=== PATIENT | female | born 1975 | race Caucasian/White ===

== ENCOUNTER 2016-11-23 15:59 | Emergency (ER) | payer MEDICARE, MEDICAID ==
[~2016-11-23] VITALS: Ht 175.3 cm; Wt 81.8 kg
[~2016-11-23 15:59] MED LIST: ALBUTEROL0.09 MG/A1 IH; ALBUTEROL0.83 MG/ML IH; ALEVE; AMOXICILLIN 50500 MG PO; BACTRIM DS 8001 TAB PO; BCP TD; CARAFATE 1GM1 G PO; CELEBREX50 MG; CIPRO500 MG PO; FLEXERIL 1010 MG/TAB PO; LORTAB 5/500 501 TAB PO; LORTAB PO; MACROBID100 M1 PO; MULTIPLE VITAMI1 TA2 PO; MVI; NAPROXEN ER500 MG PO; NO HOME MEDICATIONS; NORCO 325 MG-51 TAB PO; NORCO 325 MG-7.1 TAB PO; PERCOCET 325 MG1 TA2 PO; PREDNISONE10 MG PO; PREDNISONE20 MG PO; PRENATAL1 TA1 PO; PREVACID 30MG30 MG PO; PREVPAC PO; PRIL40 PO; PRILOTC PO; PROAIR HFA0.09 MG/AC IH; SINGULAIR PO; ULTRAM 50MG TAB50 MG PO; VICODIN 5/5001 UDTAB PO; ZOFRAN ODT4 MG PO; ZOFRAN8 MG PO; seasonale
[2016-11-23 16:07] VITALS: TEMP 98.2
[2016-11-23 17:18] LABS: BASO # 0.1 (0.0-0.2); BASO % 0.7 % (0.0-2.0); EOS # 0.4 (0.0-0.7); EOS % 3.2 % (0-4.0); GRAN # 6.2 (1.4-6.5); GRAN % 56.5 % (42.2-75.2); HEMOGLOBIN 12.2 g/dl (12.5-16.0); LYMPH # 3.7 (1.2-3.4); LYMPH % 33.7 % (20.0-51.0); MEAN CELL VOLUME 87 fl (80.0-100.0); MEAN CORPUSCULAR HEMOGLOBIN 30 pg (27.0-31.0); MEAN CORPUSCULAR HGB CONC 35 g/dl (33.0-37.0); MEAN PLATELET VOLUME 10.1 fl (7.4-10.4); MONO # 0.6 (0.1-0.6); MONO % 5.3 % (1.7-9.3); PLATELET COUNT 294 K/mm3 (130-400); RED BLOOD COUNT 4.02 M/mm3 (4.10-5.30); REDCELL DISTRIBUTION WIDTH-CV 12.8 % (11.5-14.5); WHITE BLOOD COUNT 10.9 K/mm3 (4.8-10.8)
[2016-11-23 17:22] LABS: HEMATOCRIT 35.1 % (37.0-47.0)
[2016-11-23 17:23] LABS: PH 6 (5-8); SQUAMOUS EPITHELIAL 0-2 /hpf; URINE APPEARANCE Hazy; URINE BACTERIA Rare /hpf; URINE BILIRUBIN Negative (NEGATIVE); URINE BLOOD 1+ (NEGATIVE); URINE COLOR Yellow; URINE GLUCOSE Negative (NEGATIVE); URINE KETONE Negative (NEGATIVE); URINE UROBILINOGEN Negative (NEGATIVE)
[2016-11-23] MEDS ORDERED: CARAFATE 1GM1 G PO (17:29)
[2016-11-23] MEDS ORDERED: PRILOSEC 20MG20 MG PO (17:29)
[2016-11-23 17:38] LABS: ADJUSTED CALCIUM 9.3 mg/dL (8.4-10.2); ALBUMIN 3.9 gm/dL (3.5-5.0); BILIRUBIN,TOTAL 0.6 mg/dL (0.0-1.0); CALCIUM 9.2 mg/dL (8.4-10.2); CREATININE, serum 0.94 mg/dL (0.52-1.25); POTASSIUM 3.8 mmol/L (3.4-5.0); TOTAL PROTEIN 6.9 gm/dL (6.4-8.2)
[2016-11-23 18:22] VITALS: BP 118/80; PULSE 85
== END 2016-11-23 18:24 | disposition home or self-care (01) ==
LOC: COL.ER 15:59
PROVIDERS: Family Medicine
DX: K52.9 Noninfective gastroenteritis and colitis, unspecified (principal)
CPT/HCPCS: J2405; J7030

== ENCOUNTER 2017-02-18 13:58 | Emergency (ER) | payer MEDICARE, MEDICAID ==
[~2017-02-18] VITALS: Ht 175.3 cm; Wt 112.8 kg
[~2017-02-18 13:58] MED LIST changes: +PRILOSEC 20MG20 MG PO
[2017-02-18 14:06] VITALS: BP 122/71; TEMP 98
[2017-02-18 15:41] VITALS: PULSE 80
== END 2017-02-18 15:41 | disposition home or self-care (01) ==
LOC: COL.ER 13:58
DX: J06.9 Acute upper respiratory infection, unspecified (principal); K21.9 Gastro-esophageal reflux disease without esophagitis

== ENCOUNTER 2017-11-24 14:26 | Emergency (ER) | payer MEDICARE ==
[~2017-11-24] VITALS: Ht 175.3 cm; Wt 84.1 kg
[2017-11-24 14:28] VITALS: BP 125/59; TEMP 97.6
[2017-11-24] MEDS ORDERED: PREDNISONE20 MG PO (14:39)
[2017-11-24] MEDS ORDERED: MULTI VITAMINS1 TAB PO (14:44)
[2017-11-24 14:59] VITALS: PULSE 94
== END 2017-11-24 14:59 | disposition home or self-care (01) ==
LOC: COL.ER 14:26
DX: L50.9 Urticaria, unspecified (principal); K21.9 Gastro-esophageal reflux disease without esophagitis
CPT/HCPCS: J7512

== ENCOUNTER 2018-06-28 22:53 | Emergency (ER) | payer MEDICARE, OTHER ==
[~2018-06-28] VITALS: Ht 175.3 cm; Wt 106.4 kg
[~2018-06-28 22:53] MED LIST changes: +MULTI VITAMINS1 TAB PO
[2018-06-28 22:58] VITALS: TEMP 97.8
[2018-06-29 00:02] LABS: COLLECTION METHOD CLEAN CATCH
[2018-06-29 00:08] LABS: MUCOUS Present /lpf; PH 5 (5-8); URINE APPEARANCE Hazy; URINE BACTERIA None Seen /hpf; URINE BILIRUBIN Negative (NEGATIVE); URINE BLOOD 1+ (NEGATIVE); URINE COLOR Yellow; URINE GLUCOSE Negative (NEGATIVE); URINE KETONE Negative (NEGATIVE); URINE LEUKOCYTE ESTERASE Negative (NEGATIVE); URINE NITRATE Negative (NEGATIVE); URINE PROTEIN(semi-quant) Negative (NEGATIVE); URINE RBC 0-2 /hpf; URINE UROBILINOGEN Negative (NEGATIVE)
[2018-06-29 01:28] LABS: BASO # 0.1 (0.0-0.2); BASO % 0.6 % (0.0-2.0); EOS # 0.3 (0.0-0.7); EOS % 3.1 % (0-4.0); GRAN % 55.5 % (42.2-75.2); HEMOGLOBIN 11.2 g/dl (12.5-16.0); LYMPH # 3.1 (1.2-3.4); LYMPH % 34.3 % (20.0-51.0); MEAN CELL VOLUME 87 fl (80.0-100.0); MEAN CORPUSCULAR HEMOGLOBIN 30 pg (27.0-31.0); MEAN CORPUSCULAR HGB CONC 35 g/dl (33.0-37.0); MEAN PLATELET VOLUME 9.8 fl (7.4-10.4); MONO # 0.5 (0.1-0.6); MONO % 6.1 % (1.7-9.3); PLATELET COUNT 226 K/mm3 (130-400); RED BLOOD COUNT 3.69 M/mm3 (4.10-5.30); REDCELL DISTRIBUTION WIDTH-CV 12.7 % (11.5-14.5)
[2018-06-29 01:29] LABS: HEMATOCRIT 32.2 % (37.0-47.0)
[2018-06-29 01:45] LABS: ALBUMIN 3.3 gm/dL (3.5-5.0); BILIRUBIN,TOTAL 0.3 mg/dL (0.0-1.0); CALCIUM 8.8 mg/dL (8.4-10.2); CREATININE, serum 0.63 mg/dL (0.52-1.25); POTASSIUM 3.4 mmol/L (3.4-5.0); TOTAL PROTEIN 6.2 gm/dL (6.4-8.2)
[2018-06-29 03:49] VITALS: BP 113/64
[2018-06-29 04:46] VITALS: PULSE 80
== END 2018-06-29 04:48 | disposition home or self-care (01) ==
LOC: COL.ER 22:53
PROVIDERS: Physician Assistant
DX: O26.891 Other specified pregnancy related conditions, first trimester (principal); O99.331 Smoking (tobacco) complicating pregnancy, first trimester; R10.11 Right upper quadrant pain; Z90.89 Acquired absence of other organs; Z90.49 Acquired absence of other specified parts of digestive tract; Z3A.00 Weeks of gestation of pregnancy not specified
CPT/HCPCS: J7030

== ENCOUNTER 2019-01-10 06:06 | Inpatient (IN) | payer MEDICARE, OTHER ==
[~2019-01-10] VITALS: Ht 175.3 cm; Wt 111.4 kg
[2019-01-10] VITALS (41 sets, daily range): BP systolic 102–133; BP diastolic 51–593; PULSE 72–97; TEMP 97.4–98.2
--- NOTE | 2019-01-10 08:15 | NUR ---
Patient arrives ambulatory for scheduled induction of labor. Patient reports occasional contractions every 15 minutes, denies ROM or vaginal bleeding and reports normal movement. Plan of care reviewed. Patient denies questions. EFM explained and placed. VSS. Consents explained and signed. Assessment completed. 0840- IV started in LH. Labs obtained, LR and Michael infusing per protocol. See EMAR. 0900- Dr. Arias on unit. Updated on patient. Request to send UDOA with patient's visit history. Orders recieved. Pitocin administration reviewed. Patient agrees and denies questions. Pitocin started at 2 mU per protocol and order. See EMAR.
[2019-01-10] MEDS ORDERED: PRENATAL (08:50)
[2019-01-10] MEDS ORDERED: BENADRYL25 M2 PO (08:50)
[2019-01-10 09:09] LABS: BASO % 0.3 % (0.0-2.0); EOS # 0.2 (0.0-0.7); EOS % 1.3 % (0-4.0); GRAN % 69.2 % (42.2-75.2); HEMOGLOBIN 11.5 g/dl (12.5-16.0); LYMPH # 2.7 (1.2-3.4); LYMPH % 22.9 % (20.0-51.0); MEAN CELL VOLUME 87 fl (80.0-100.0); MEAN CORPUSCULAR HEMOGLOBIN 31 pg (27.0-31.0); MEAN CORPUSCULAR HGB CONC 35 g/dl (33.0-37.0); MEAN PLATELET VOLUME 12.2 fl (7.4-10.4); MONO # 0.7 (0.1-0.6); PLATELET COUNT 226 K/mm3 (130-400); RED BLOOD COUNT 3.75 M/mm3 (4.10-5.30); REDCELL DISTRIBUTION WIDTH-CV 15.1 % (11.5-14.5)
[2019-01-10 09:11] LABS: HEMATOCRIT 32.6 % (37.0-47.0)
[2019-01-10 09:39] LABS: TRICYCLIC ANTIDEPRESS URINE NEGATIVE
--- NOTE | 2019-01-10 11:05 | NUR ---
1105- Hiral Hutchinson CRNA at bedside. Patient back to bed after going to the bathroom and sitting upright. Difficulty tracing FHR strip due to maternal position and habitus. 1117- Test dose via epidural by Hiral Hutchinson CRNA. Patient tolerates well, see anesthesia record. 1125- Patient repositioned WL following epidural. Patient updated on plan of care and safety reviewed.
--- NOTE | 2019-01-10 13:15 | NUR ---
Dr. Arias at bedside. Reviews FHR strip. SVE /-2 per provider. Orders to increase Pitocin to 30 mU.
--- NOTE | 2019-01-10 13:40 | NUR ---
Patient repositioned sitting upright, then LL. Continued frequent position changes. Physician on unit, will update on FHR strip. Current orders to continue to increase Pitocin.
--- NOTE | 2019-01-10 14:04 | NUR ---
Dr. Arias reviews R strip. Orders to continue Pitocin induction.
--- NOTE | 2019-01-10 14:32 | NUR ---
Pitocin discontinued and oxygen via simple mask applied. Will update physician.
--- NOTE | 2019-01-10 17:22 | NUR ---
1722- Patient complete and feeling constant pressure and urge to push. 1725- Dr. Arias called for delivery at this time. 1740- Dr. Arias at bedside for delivery. Bey catheter dc'd. 1742- Patient in lithotomy, educated on pushing with contractions. 1748- Spontanoeous delivery of viable female at this time. 1753- Spontaneous delivery of intact placenta, pitocin running at 333cc/hr at this time. Cord ph obtained. 1755- Laceration repaired per Dr. Arias. remains skin to skin with patient. No complications.
[2019-01-11] VITALS (7 sets, daily range): BP systolic 104–130; BP diastolic 46–67; PULSE 65–76; TEMP 97.4–98.1
--- NOTE | 2019-01-11 09:00 | NUR ---
Patient ambulatory to Room 222 for blood patch procedure. Senait MURRY at bedside. Plan of care discussed, questions answered. See anesthesia note for further details.
--- NOTE | 2019-01-11 10:02 | NUR ---
Initial visit; Mom thanked for offering congratulations for the of her daughter. thanked family for choosing [place].
[2019-01-12 02:20] VITALS: BP 112/56; PULSE 91; TEMP 97.7
[2019-01-12 08:20] VITALS: BP 100/52; PULSE 74; TEMP 98.1
[2019-01-12] MEDS ORDERED: FIORICET 325 MG1 TA1 PO (09:12)
[2019-01-12] MEDS ORDERED: IBU600 MG PO (09:12)
--- NOTE | 2019-01-12 16:00 | NUR ---
1600- This RN calls phamacy and speaks to Te. Pt has order to discharge home, infant is staying inpatient until tomorrow. Pt has discharge prescriptions for Ibuprofen and Fiorcet but Pt does not have car with her to fill these. Pt has had terrible headache since delivery, is being treated for a possible spinal headache. Asking if there is a way to provide her with medications to get her through the night. 1615- Te onto unit with discharge medications to provide to Pt to take as outpatient on boarder status. This RN grateful for help with situation.
== END 2019-01-12 16:45 | disposition home or self-care (01) | DRG 807 ==
LOC: LDR 06:06 → OB 08:05
PROVIDERS: ADMIT Obstetrics & Gynecology
PROC: 10907ZC Drainage of Amniotic Fluid, Therapeutic from Products of Conception, Via Natural or Artificial Opening (ICD-10-PCS; principal; 2019-01-10)
PROC: 10E0XZZ Delivery of Products of Conception, External Approach (ICD-10-PCS; 2019-01-10)
PROC: 0HQ9XZZ Repair Perineum Skin, External Approach (ICD-10-PCS; 2019-01-10)
PROC: 3E0R3GC Introduction of Other Therapeutic Substance into Spinal Canal, Percutaneous Approach (ICD-10-PCS; 2019-01-11)
PROC: 3E033VJ Introduction of Other Hormone into Peripheral Vein, Percutaneous Approach (ICD-10-PCS; 2019-01-11)
DX: O99.02 Anemia complicating childbirth (principal); Z37.0 Single live birth; D64.9 Anemia, unspecified; O62.2 Other uterine inertia; Z3A.39 39 weeks gestation of pregnancy; O99.214 Obesity complicating childbirth; E66.9 Obesity, unspecified; O70.0 First degree perineal laceration during delivery; O76 Abnormality in fetal heart rate and rhythm complicating labor and delivery; G89.29 Other chronic pain; O99.52 Diseases of the respiratory system complicating childbirth; J45.909 Unspecified asthma, uncomplicated; O75.89 Other specified complications of labor and delivery; R51 Headache; G43.909 Migraine, unspecified, not intractable, without status migrainosus; O90.89 Other complications of the puerperium, not elsewhere classified
CPT/HCPCS: J2540; J2590; J2795; J7120